=== PATIENT | male | born 1995 | race Caucasian/White ===

== ENCOUNTER 2019-12-02 08:33 | Emergency (ER) | payer OTHER ==
[~2019-12-02] VITALS: Ht 185.4 cm; Wt 155.6 kg
[2019-12-02 08:37] VITALS: Ht 185.4 cm; Wt 155.6 kg
[2019-12-02 11:08] VITALS: BP 138/79
== END 2019-12-02 11:08 | disposition home or self-care (01) ==
LOC: ED 08:33
DX: J10.1 Influenza due to other identified influenza virus with other respiratory manifestations (principal); F17.210 Nicotine dependence, cigarettes, uncomplicated
CPT/HCPCS: 87804; 99406